=== PATIENT | female | born 2005 | race Two or more races ===

== ENCOUNTER 2024-03-17 01:07 | Emergency (ER) | payer MEDICAID ==
[~2024-03-17] VITALS: Ht 165.1 cm; Wt 67.7 kg
[2024-03-17 01:36] LABS: CLARITY URINE CLEAR (CLEAR); COLOR URINE YELLOW (YELLOW); GLUCOSE URINE NEGATIVE (NEGATIVE); KETONES URINE NEGATIVE (NEGATIVE); LEUKOCYTE ESTERASE URINE NEGATIVE (NEGATIVE); NITRITE URINE NEGATIVE (NEGATIVE); OCCULT BLOOD URINE NEGATIVE (NEGATIVE); PROTEIN URINE NEGATIVE (NEGATIVE); SPECIFIC GRAVITY URINE 1.015 (1.005-1.030); UROBILINOGEN URINE 0.2 E.U./dL (0.2-1.0)
[2024-03-17] MEDS: BACITRACIN ZINC OINT UDPKT TOP ONE (02:45)
[2024-03-17] MEDS: LIDOCAINE HCL/PF 1% 10 MG/ML 5ML VIAL INFIL ONE (02:45)
[2024-03-17] MEDS: ACETAMINOPHEN 325MG TABLET PO ONE (03:00)
[2024-03-17] MEDS: CLINDAMYCIN HCL 150MG CAPSULE PO ONE (04:15)
[2024-03-17] MEDS ORDERED: CEFI400C4 PO (04:35)
[2024-03-17] MEDS ORDERED: CLIN-194 MT (04:35)
[2024-03-17] MEDS ORDERED: ACET-2708 MT (04:35)
[2024-03-17 04:52] VITALS: BP 110/54; PULSE 74; RESP 12; TEMP 97.4
== END 2024-03-17 04:53 | disposition home or self-care (01) ==
LOC: ER 01:07
DX: N75.0 Cyst of Bartholin's gland (principal)
CPT/HCPCS: 99284; 10060; 81003; 81025; J3490